=== PATIENT | female | born 1945 | race Caucasian/White ===

== ENCOUNTER 2016-04-12 13:29 | Emergency (ER) | payer OTHER ==
[~2016-04-12] VITALS: Ht 157.5 cm; Wt 67.0 kg
[2016-04-12 14:48] LABS: HEMATOCRIT 38.5 % (36.0-46.0); MCH 31.6 PG (29.0-34.0); MCHC 35.3 G/DL (30.0-36.0); MCV 89.5 FL (83-99); MEAN PLAT.VOLUME 9.2 uM^3 (9.5-12.4); PLATELET COUNT 222 K/uL (156-360); RBC DIS.WIDTH-SD 42.1 % (39-53); WHITE BLOOD COUNT 8.1 K/uL (4.1-10.2)
[2016-04-12 14:58] LABS: CHLORIDE 102 mEq/L (99-109); POTASSIUM 3.5 mEq/L (3.7-5.4); SODIUM 138 mEq/L (136-147)
[2016-04-12 15:00] LABS: GLUCOSE 103 mg/dL (70-99)
[2016-04-12 15:01] LABS: ANION GAP 11 MEQ/L (2-14)
[2016-04-12 15:04] LABS: GFR ESTIMATE (CALCULATED) > 59 mL/min/
[2016-04-12 15:05] LABS: UREA NITROGEN (BUN) 14 mg/dL (9-23)
[2016-04-12 15:11] LABS: TROP-I INTERPRETATION NEGATIVE; TROPONIN-I < 0.01 ng/mL (0.0-0.30)
[2016-04-12 18:39] VITALS: BP 133/74
== END 2016-04-12 19:11 | disposition home or self-care (01) ==
LOC: EME 13:29
PROVIDERS: Emergency Medicine
DX: I10 Essential (primary) hypertension (principal); R51 Headache; Z86.73 Personal history of transient ischemic attack (TIA), and cerebral infarction without residual deficits; Z88.6 Allergy status to analgesic agent
CPT/HCPCS: 70450; 80048; 84484; 85027; 93005; 99281; 99285; J7030